=== PATIENT | male | born 1960 | race American Indian/Alaskan Native ===

== ENCOUNTER 2017-01-30 23:44 | Emergency (ER) | payer OTHER ==
[2017-01-31 00:44] LABS: Hematocrit 42.2 % (35.5-45.6); Hemoglobin 13.9 gm/dl (11.8-15.2); Mean Corpuscular HGB Conc 33 % (32-34); Mean Corpuscular Hemoglobin 30 pg (28-32); Mean Corpuscular Volume 92 fl (84-94); Platelet Count 116 K/mm3 (140-440); Red Blood Count 4.58 M/mm3 (3.65-5.03); White Blood Count 4.9 K/mm3 (4.5-11.0)
[2017-01-31 01:00] LABS: Anion Gap 17 mmol/L; BUN/Creatinine Ratio 12.85; Blood Urea Nitrogen 18 mg/dL (9-20); Calcium 8.9 mg/dL (8.4-10.2); Carbon Dioxide 25 mmol/L (22-30); Chloride 100.8 mmol/L (98-107); Glucose 175 mg/dL (75-100); Potassium 4.8 mmol/L (3.6-5.0); Sodium 138 mmol/L (137-145)
[2017-01-31] MEDS ORDERED: NACL 0.9% 1000 ML 1,000 ML IV ONE (02:11)
[2017-01-31] MEDS ORDERED: NORMODYNE IV ONE (02:12)
--- NOTE | 2017-01-31 02:17 | Emergency Department Report ---
HPI - General Chief Complaint: Dyspnea/Respdistress Time Seen by Provider: 01/31/17 01:42 - HPI HPI: This is a 56-year-old Afro-[place] male presents to the emergency department with complaint of shortness of breath, uncontrolled shaking and some tachycardia. The patient was traveling from [place] and made to [facility] when all of a sudden the patient began having significant shortness of breath and was shaking "out of control." Patient felt very cold. He has a very mild amount of midsternal chest discomfort. The total time driving was about 5 hours prior to stopping. Patient does not have anypast medical history but also has not seen a primary care doctor in many years. He denies tobacco or illicit drug use or abuse. He did not take anything for symptoms prior to presentation. ED Past Medical Hx - Past Medical History Previous Medical History?: No - Surgical History Past Surgical History?: Yes Additional Surgical History: left knee - Social History Smoking Status: Never Smoker Substance Use Type: None ED Review of Systems ROS: Stated complaint: YAEL Other details as noted in HPI Comment: All other systems reviewed and negative Constitutional: chills. denies: fever Eyes: denies: eye pain, eye discharge, vision change ENT: denies: ear pain, throat pain Respiratory: shortness of breath. denies: cough Cardiovascular: chest pain, palpitations. denies: edema Gastrointestinal: denies: abdominal pain, nausea, diarrhea Genitourinary: denies: urgency, dysuria Musculoskeletal: denies: back pain, joint swelling, arthralgia Skin: denies: rash, lesions Neurological: denies: headache, weakness, paresthesias Physical Exam - Physical Exam Vital Signs: Vital Signs 01/30/17 01/31/17 23:52 02:11 Temperature 98 F Pulse Rate 134 H 122 H Respiratory 26 H 20 Rate Blood Pressure 145/84 Blood Pressure 124/70 [Right] O2 Sat by Pulse 97 95 Oximetry Physical Exam: GENERAL: The patient is well-developed well-nourished. HEENT: Normocephalic. Atraumatic. Extraocular motions are intact. Patient has moist mucous membranes. Pupils equal reactive to light bilaterally. NECK: Supple. Trachea is midline. CHEST/LUNGS: Clear to auscultation. There is no respiratory distress noted. HEART/CARDIOVASCULAR: Regular. There is mild to moderate tachycardia. There is no gallop rub or murmur. ABDOMEN: Abdomen is soft, nontender. Patient has normal bowel sounds. There is no abdominal distention. Obese habitus. SKIN: Skin is warm and dry. NEURO: The patient is awake, alert, and oriented. The patient is cooperative. The patient has no focal neurologic deficits. The patient has normal speech. MUSCULOSKELETAL: There is no tenderness or deformity. There is no limitation range of motion. There is no evidence of acute injury. ED Course Vital Signs 01/30/17 01/31/17 23:52 02:11 Temperature 98 F Pulse Rate 134 H 122 H Respiratory 26 H 20 Rate Blood Pressure 145/84 Blood Pressure 124/70 [Right] O2 Sat by Pulse 97 95 Oximetry ED Medical Decision Making - Lab Data Result diagrams: 01/31/17 00:29 01/31/17 00:29 - EKG Data -: EKG Interpreted by Me EKG shows normal: sinus rhythm, axis, intervals, QRS complexes, ST-T waves (T- wave inversions to the inferior leads) Rate: tachycardia (132 bpm) - EKG Data When compared to previous EKG there are: previous EKG unavailable Interpretation: other (sinus tachycardia, 132 beats per minute, T-wave inversions to the inferior leads) - Radiology Data Radiology results: report reviewed, image reviewed interpreted by me: Chest x-ray did not show any acute process. Heart is normal shape and size. No effusions. No pneumothorax. No signs of pneumonia seen. CT imaging of the chest does not show any pulmonary dissection or any acute process. - Medical Decision Making 56-year-old presents with some acute shortness of breath and tachycardia. With the patient's recent car ride and these acute symptoms, the concern was for a pulmonary embolism. However the patient had a CT angiography of the chest did not show any PE, dissection or any acute process. Patient said that troponins 3. EKG was sinus tachycardia but did not show any signs of ST elevation HI. Patient was given some IV fluid and one dose of labetalol. Upon reevaluation the patient says he is feeling much better. There is no further shortness of breath, his heart rate has come down to more reasonable level. Patient does not appear to require admission at this time. He will return to the ER with any chest pain, return of shortness of breath or any acute distress. He will follow-up with primary care in next few days. - Differential Diagnosis HI, PE, pneumonia, CHF Critical Care Time: No Critical care attestation.: If time is entered above; I have spent that time in minutes in the direct care of this critically ill patient, excluding procedure time. ED Disposition Clinical Impression: Shortness of breath, Tachycardia Disposition: DISCHARGED TO HOME OR SELFCARE Is pt being admited?: No Condition: Stable Instructions: Dyspnea (ED) Additional Instructions: Please follow-up with a primary care doctor in the next few days. Return to the emergency department with any chest pain, shortness of breath or any acute distress. Referrals: PRIMARY CARE, [Primary Care Provider] - 3-5 Days Time of Disposition: 06:34
[2017-01-31] MEDS ORDERED: NACL ONE (02:25)
[2017-01-31 03:33] LABS: Basophils % (Manual) 0 % (0.0-1.8); Blastocytes % (Manual) 0 %
[2017-01-31 03:34] LABS: Anisocytosis 1+; Diff Status Complete; Platelet Estimate Consistent w Auto
--- NOTE | 2017-01-31 04:08 | Cat Scan Report ---
FINAL REPORT PROCEDURE: CT ANGIO CHEST TECHNIQUE: Computerized axial tomographic angiography of the chest and pulmonary arteries was performed after the IV injection of iodinated nonionic contrast. The image data was postprocessed using maximum intensity projection (MIP) and 2-dimensional multiplanar reformatted (MPR) techniques. The examination is specifically tailored to the evaluation of the pulmonary arteries per clinical request. HISTORY: Short of breath 786.09, chest pain 786.50, SOB, Tachy COMPARISON: No prior studies are available for comparison. FINDINGS: Heart and pericardium: Heart size is normal. There is a small pericardial effusion.. Thoracic aorta: There is no aortic aneurysm or dissection.. Pulmonary vasculature: No pulmonary embolism is identified. There is suboptimal contrast opacification of the distal branches.. Lymph nodes: No enlarged thoracic lymph nodes. Lungs: Lungs are clear and expanded. There are no infiltrates.. Pleural space: No effusion, thickening, or pneumothorax. Musculoskeletal structures: No significant abnormality. Upper abdominal structures: Liver is enlarged and fatty.. IMPRESSION: Heart size is normal. There is a small pericardial effusion.. There is no aortic aneurysm or dissection.. No pulmonary embolism is identified. There is suboptimal contrast opacification of the distal branches.. Lungs are clear and expanded. There are no infiltrates.. There is no pleural effusion, thickening, or pneumothorax. .
[2017-01-31 06:32] VITALS: BP 143/77
--- NOTE | 2017-01-31 09:50 | XRay Report ---
Single view chest: History: Chest pain. Findings: Normal cardiomediastinal silhouette. Trachea is midline. No consolidation, pneumothorax or pleural effusion. Impression: No acute cardiopulmonary findings.
== END 2017-01-31 06:53 | disposition home or self-care (01) ==
LOC: ED 23:44
DX: R06.02 Shortness of breath (principal); R00.0 Tachycardia, unspecified
CPT/HCPCS: 36415; 71010; 71275; 80048; 84484; 85007; 85025; 93005; 93010; 96361; 96374; 99285; J7030; Q9967